=== PATIENT | male | born 1985 | race Caucasian/White ===

== ENCOUNTER 2020-07-20 08:47 | Emergency (ER) | payer BC ==
[~2020-07-20] VITALS: Ht 182.9 cm; Wt 90.9 kg
[2020-07-20 08:55] VITALS: BP 140/95
[2020-07-20] MEDS ORDERED: FLO0.4C PO (09:55)
[2020-07-20] MEDS ORDERED: MELO7.5T12 PO (09:55)
== END 2020-07-20 10:13 | disposition home or self-care (01) ==
LOC: ER 08:49
DX: N20.0 Calculus of kidney (principal); F17.200 Nicotine dependence, unspecified, uncomplicated
CPT/HCPCS: 99284